=== PATIENT | female | born 1975 | race Caucasian/White ===

== ENCOUNTER 2024-04-27 19:52 | Outpatient (CLI) | payer MEDICARE, MEDICAID, SELFPAY | END 2024-04-27 19:53 | disposition home or self-care (01) | PROVIDERS: PCP Internal Medicine; Visit Provider Internal Medicine | DX: G47.33 Obstructive sleep apnea (adult) (pediatric) (principal); G47.10 Hypersomnia, unspecified; E66.3 Overweight; Z68.33 Body mass index [BMI] 33.0-33.9, adult | CPT/HCPCS: 95810 ==